=== PATIENT | male | born 1990 | race Caucasian/White ===

== ENCOUNTER 2019-03-02 08:06 | Emergency (ER) | payer OTHER ==
[~2019-03-02] VITALS: Ht 175.3 cm; Wt 61.4 kg
[2019-03-02 08:49] LABS: BASO % 0.4 % (0.0-1.0); EOS # 0.2 10^3/uL (0.0-0.5); EOS % 2.8 % (0.0-3.0); HEMATOCRIT 45.1 % (42.0-52.0); HEMOGLOBIN 14.8 g/dl (13.5-17.5); LYMPH # 1.5 10^3/uL (1.5-5.0); LYMPH % 21.3 % (24.0-44.0); MEAN CORPUSCULAR HEMOGLOBIN 30.2 pg (27.0-33.0); MEAN CORPUSCULAR HGB CONC 32.8 g/dl (32.0-36.5); MONO # 0.5 10^3/uL (0.0-0.8); MONO % 6.4 % (0.0-5.0); NEUTROPHILS # 4.9 10^3/uL (1.5-8.5); NEUTROPHILS % 68.3 % (36.0-66.0); PLATELET COUNT, AUTOMATED 201 10^3/uL (150-450); WHITE BLOOD COUNT 7.2 10^3/uL (4.0-10.0)
[2019-03-02] MEDS ORDERED: PANTOPRAZOLE 40MG INJ (PROTONIX) (C9113) IV ONE (09:00)
[2019-03-02] MEDS ORDERED: SUCRALFATE SUSP 1GM/10ML UD PO ONE (09:00)
[2019-03-02 09:13] LABS: ALT/SGPT 19 U/L (12-78); AMYLASE 53 U/L (25-115); BILIRUBIN,TOTAL 0.3 MG/DL (0.2-1.0); BLOOD UREA NITROGEN 7 MG/DL (7-18); CALCIUM LEVEL 9.3 MG/DL (8.5-10.1); CARBON DIOXIDE LEVEL 28 MEQ/L (21-32); CHLORIDE LEVEL 105 MEQ/L (98-107); CK-MB VALUE MASS < 1.0 NG/ML (<3.6); CPK CREATINE PHOSPHOKINASE 85 U/L (39-308); CREATININE FOR GFR 1.15 MG/DL (0.70-1.30); GLOMERULAR FILTRATION RATE > 60.0 (>60); GLUCOSE, FASTING 150 MG/DL (70-100); LIPASE 95 U/L (73-393); MB/CK RELATIVE INDEX 1.18 (< OR =4); POTASSIUM SERUM 3.3 MEQ/L (3.5-5.1); SODIUM LEVEL 139 MEQ/L (136-145); TOTAL PROTEIN 7.3 GM/DL (6.4-8.2); TROPONIN I < 0.02 NG/ML (< 0.10)
--- NOTE | 2019-03-02 09:16 | REP ---
Clinical: Epigastric pain . Comparison: The none . Technique: PA and lateral. Findings: The mediastinum and cardiac silhouette are normal. The lung monroy are clear and without acute consolidation, effusion, or pneumothorax. The skeletal structures are intact and normal. Impression: 1. No acute cardiopulmonary process. Electronically Signed by Parth Thrasher MD 03/02/2019 09:07 A
[2019-03-02 10:44] VITALS: BP 114/76
[2019-03-02] MEDS ORDERED: PANT40TA3 PO (11:29)
[2019-03-02] MEDS ORDERED: SUCR1SS PO (11:29)
--- NOTE | 2019-03-03 16:44 | ECGEPIP ---
[facility] - ED Test Date: 2019-03-02 Pat Name: AGUSTO HOLDER Department: Room: - Gender: Male Certified Orthotist: lauryn : 1990 Requested By: SHERLY Dotson Order Number: [id number] Reading MD: Dee Mohamud Measurements Intervals Theodore Rate: 80 P: 47 VT: 136 QRS: 82 QRSD: 102 T: 27 QT: 366 QTc: 424 Interpretive Statements SINUS RHYTHM NO PRIOR Electronically Signed on 03-03-2019 16:44:02 EDT by Dee Mohamud
== END 2019-03-02 11:43 | disposition home or self-care (01) ==
LOC: M ED 08:06
DX: K21.0 Gastro-esophageal reflux disease with esophagitis (principal); R07.89 Other chest pain; M79.601 Pain in right arm; M79.602 Pain in left arm; Z73.3 Stress, not elsewhere classified; F17.290 Nicotine dependence, other tobacco product, uncomplicated
CPT/HCPCS: 71046; 80053; 82150; 82550; 82553; 83690; 84484; 85025; 85379; 93005; 96374; 99284; C9113